=== PATIENT | male | born 1995 | race African-American/Black ===

== ENCOUNTER 2022-12-10 10:03 | Emergency (ER) | payer MEDICAID ==
[~2022-12-10] VITALS: Ht 182.9 cm; Wt 71.0 kg
[~2022-12-10 10:03] MED LIST: ALBUTEROL
[2022-12-10 10:12] VITALS: BP 127/63; PULSE 76; RESP 20; TEMP 98.8; O2SAT 98
[2022-12-10] MEDS ORDERED: AMOX1TAB16 MT (11:48)
[2022-12-10] MEDS ORDERED: IBUP-2030 MT (11:50)
== END 2022-12-10 12:20 | disposition home or self-care (01) ==
LOC: ER 10:03
DX: K04.7 Periapical abscess without sinus (principal); Z98.890 Other specified postprocedural states
CPT/HCPCS: 99281; 99283

== ENCOUNTER 2023-10-08 12:37 | Emergency (ER) | payer MEDICAID ==
[~2023-10-08] VITALS: Ht 182.9 cm; Wt 72.0 kg
[~2023-10-08 12:37] MED LIST changes: +AMOX1TAB16 MT; +IBUP-2030 MT
[2023-10-08 12:48] VITALS: BP 128/58; PULSE 74; RESP 16; TEMP 98.7; O2SAT 98
[2023-10-08] MEDS ORDERED: LIDO35.421 TP (13:24)
== END 2023-10-08 13:55 | disposition home or self-care (01) ==
LOC: ER 12:37
DX: L81.8 Other specified disorders of pigmentation (principal)
CPT/HCPCS: 99283

== ENCOUNTER 2024-02-09 18:25 | Emergency (ER) | payer BC ==
[~2024-02-09] VITALS: Ht 185.4 cm; Wt 81.0 kg
[~2024-02-09 18:25] MED LIST changes: +LIDO35.421 TP
[2024-02-09 18:35] VITALS: O2SAT 98
[2024-02-09] MEDS ORDERED: IBUP-2030 MT (20:10)
[2024-02-09 20:26] VITALS: BP 123/72; PULSE 68; RESP 20; TEMP 98.3
== END 2024-02-09 20:27 | disposition home or self-care (01) ==
LOC: ER 18:25
DX: S60.511A Abrasion of right hand, initial encounter (principal); S90.811A Abrasion, right foot, initial encounter; Z98.890 Other specified postprocedural states; X58.XXXA Exposure to other specified factors, initial encounter; Y93.89 Activity, other specified; Y92.89 Other specified places as the place of occurrence of the external cause; Y99.8 Other external cause status
CPT/HCPCS: 99282